=== PATIENT | male | born 1940 | race Caucasian/White ===

== ENCOUNTER → 2020-08-18 | Outpatient (CLI) | payer OTHER ==
[~2020-08-18] MED LIST: LISI10TA24 PO; SERT100T PO; TRAZ150T79 PO
== END ==
LOC: RAH 15:44
PROVIDERS: ATTEND Internal Medicine Cardiovascular Disease
DX: Z13.6 Encounter for screening for cardiovascular disorders (principal)
CPT/HCPCS: 75571

== ENCOUNTER → 2021-02-01 | Outpatient (CLI) | payer MEDICARE | END | disposition home or self-care (01) | LOC: OIH 10:16 | PROVIDERS: ATTEND Internal Medicine | DX: R05 Cough (principal); Z95.2 Presence of prosthetic heart valve | CPT/HCPCS: 71046 ==

== ENCOUNTER 2024-04-25 21:51 | Inpatient (IN) | payer MEDICARE, OTHER ==
[~2024-04-25] VITALS: Ht 160 cm; Wt 70.3 kg
[2024-04-25 23:13] LABS: BASOPHILS # (AUTO) 0.09 K/uL (0.00-0.20); BASOPHILS % (AUTO) 1.4 % (0.0-5.0); EOSINOPHILS # (AUTO) 0.18 K/uL (0.00-0.70); EOSINOPHILS % (AUTO) 2.7 % (0.0-8.0); HEMATOCRIT 42.2 % (42-54); IMMATURE GRANULOCYTE ABSOLUTE 0.02 K/uL (0-1); LYMPHOCYTES # (AUTO) 2.3 K/uL (1.0-4.8); LYMPHOCYTES % (AUTO) 35.2 % (21.0-51.0); MEAN CORPUSCULAR HEMOGLOBIN 30.5 pg (27.0-33.0); MEAN CORPUSCULAR VOLUME 95.5 fL (79-99); MONOCYTES # (AUTO) 0.8 K/uL (0.1-1.0); MONOCYTES % (AUTO) 12.6 % (3.0-13.0); NEUTROPHILS # (AUTO) 3.2 K/uL (1.8-7.7); NEUTROPHILS % (AUTO) 47.8 % (40.0-77.0); PLATELET COUNT (AUTO) 232 K/uL (130-400); RED BLOOD CELL COUNT(AUTO) 4.42 MIL/uL (4.50-6.20); RED CELL DISTRIBUTION WIDTH 13.8 % (11.0-15.5); WHITE BLOOD COUNT (AUTO) 6.6 K/uL (4.8-10.8)
[2024-04-25 23:22] LABS: CREATININE 1.1 mg/dL (0.5-1.3); POTASSIUM 4.1 mmol/L (3.5-5.1)
[2024-04-25 23:27] LABS: ALBUMIN 3.7 g/dL (3.5-5.0); BILIRUBIN,TOTAL 0.6 mg/dL (0.2-1.0); MAGNESIUM 2.1 mg/dL (1.80-2.40); TOTAL PROTEIN, SERUM 7.5 g/dL (6.0-8.3)
[2024-04-25 23:54] LABS: B-TYPE NATRIURETIC PEPTIDE 294 pg/mL (0-100)
[2024-04-26] MEDS: ASPIRIN 81MG CHEW TAB PO ONE (00:10)
[2024-04-26] MEDS ORDERED: PoTASSium chloRIDE 20MEQ ER 20 MEQ ERTAB PO PRN (03:30)
[2024-04-26] MEDS ORDERED: acetaMINOPHEN 325 MG TAB PO PRN ×2 (03:30)
[2024-04-26] MEDS ORDERED: MAGNESIUM 2GM PREMIX 50ML 50 ML IV PRN (03:30)
[2024-04-26] MEDS ORDERED: PoTASSium chloRIDE 20MEQ/100ML 100 ML IV PRN (03:30)
[2024-04-26] MEDS ORDERED: PoTASSium chl 10% ELIXIR 20MEQ 20 MEQ/15 ML UDCUP PO PRN (03:30)
[2024-04-26] MEDS ORDERED: ondanSETRON 4MG INJ IV PRN (03:30)
[2024-04-26] MEDS ORDERED: hydrALAZine 20MG/ML VIAL IV PRN (03:30)
[2024-04-26] MEDS ORDERED: NITROGLYCERIN 0.4 MG SL TAB SL PRN (03:30)
[2024-04-26 07:10] LABS: BASOPHILS # (AUTO) 0.06 K/uL (0.00-0.20); EOSINOPHILS # (AUTO) 0.24 K/uL (0.00-0.70); EOSINOPHILS % (AUTO) 3.9 % (0.0-8.0); HEMATOCRIT 39.2 % (42-54); IMMATURE GRANULOCYTE ABSOLUTE 0.01 K/uL (0-1); LYMPHOCYTES % (AUTO) 32.2 % (21.0-51.0); MEAN CORPUSCULAR HEMOGLOBIN 30.2 pg (27.0-33.0); MEAN CORPUSCULAR HGB CONC 32.1 g/dL (32.0-36.0); MONOCYTES # (AUTO) 0.7 K/uL (0.1-1.0); MONOCYTES % (AUTO) 11.2 % (3.0-13.0); NEUTROPHILS # (AUTO) 3.1 K/uL (1.8-7.7); NEUTROPHILS % (AUTO) 51.5 % (40.0-77.0); PLATELET COUNT (AUTO) 208 K/uL (130-400); RED BLOOD CELL COUNT(AUTO) 4.17 MIL/uL (4.50-6.20); RED CELL DISTRIBUTION WIDTH 13.9 % (11.0-15.5); WHITE BLOOD COUNT (AUTO) 6.1 K/uL (4.8-10.8)
[2024-04-26 07:17] LABS: HEMOGLOBIN A1C 5.9 % (4.0-6.0)
[2024-04-26 07:38] LABS: ALBUMIN 3.4 g/dL (3.5-5.0); BILIRUBIN,TOTAL 0.6 mg/dL (0.2-1.0); CREATININE 1.1 mg/dL (0.5-1.3); MAGNESIUM 2.1 mg/dL (1.80-2.40); POTASSIUM 4.1 mmol/L (3.5-5.1); THYROID STIMULATING HORMONE 2.79 uIU/mL (0.36-3.74)
[2024-04-26] MEDS ORDERED: ASPI-1197 PO (07:55)
[2024-04-26] MEDS ORDERED: FURO20TA4 PO (07:59)
[2024-04-26] MEDS ORDERED: OMEP20CA12 PO (07:59)
[2024-04-26] MEDS ORDERED: ROSU5TAB43 PO (07:59)
[2024-04-26] MEDS ORDERED: SACU1TAB PO (07:59)
[2024-04-26] MEDS ORDERED: METO25TA6 PO (08:01)
[2024-04-26] MEDS: ASPIRIN 81 MG EC TAB PO SCH (09:39)
[2024-04-26] MEDS: FAMOTIDINE 20MG TAB PO SCH (09:39)
[2024-04-26 14:27] VITALS: BP 134/65; PULSE 62; RESP 16; TEMP 97.7; O2SAT 99
== END 2024-04-26 14:45 | disposition home or self-care (01) | DRG 303 ==
LOC: EDH 21:51 → EDHIP 04-26 03:11
PROVIDERS: ADMIT Internal Medicine Sleep Medicine; ATTEND Internal Medicine Sleep Medicine
DX: I25.110 Atherosclerotic heart disease of native coronary artery with unstable angina pectoris (principal); F32.A Depression, unspecified; G89.29 Other chronic pain; I11.0 Hypertensive heart disease with heart failure; I50.9 Heart failure, unspecified; Z79.82 Long term (current) use of aspirin; Z82.0 Family history of epilepsy and other diseases of the nervous system; Z82.5 Family history of asthma and other chronic lower respiratory diseases; Z95.0 Presence of cardiac pacemaker; Z95.2 Presence of prosthetic heart valve
CPT/HCPCS: 36415; 71045; 80053; 80061; 83036; 83735; 83880; 84443; 84484; 85025; 93005; G0378